=== PATIENT | female | born 1995 | race African-American/Black ===

== ENCOUNTER 2019-03-30 12:44 | Emergency (ER) | payer OTHER ==
[~2019-03-30] VITALS: Ht 162.6 cm; Wt 104.3 kg
[2019-03-30] MEDS ORDERED: PROAIR HFA8.5 GM INH (12:56)
[2019-03-30 14:56] VITALS: BP 136/78
== END 2019-03-30 14:57 | disposition home or self-care (01) ==
LOC: ER 12:44
DX: N89.8 Other specified noninflammatory disorders of vagina (principal); E28.2 Polycystic ovarian syndrome; J45.909 Unspecified asthma, uncomplicated

== ENCOUNTER 2019-04-13 08:31 | Emergency (ER) | payer OTHER ==
[~2019-04-13] VITALS: Ht 165.1 cm; Wt 111.1 kg
[~2019-04-13 08:31] MED LIST: PROAIR HFA8.5 GM INH
[2019-04-13 09:21] LABS: URINE BILIRUBIN NEGATIVE (Negative); URINE BLOOD TRACE (Negative); URINE CLARITY CLEAR; URINE COLOR YELLOW; URINE GLUCOSE-RANDOM* NEGATIVE (Negative); URINE KETONES NEGATIVE (Negative); URINE LEUKOCYTES-REFLEX TRACE (Negative); URINE NITRITE-REFLEX NEGATIVE (Negative); URINE PROTEIN (DIPSTICK) NEGATIVE (Negative); URINE SPECIFIC GRAVITY 1.025 (1.005-1.035); URINE UROBILINOGEN 0.2 E.U./dl (0.2-1.0)
[2019-04-13 10:24] VITALS: BP 117/85
== END 2019-04-13 10:25 | disposition home or self-care (01) ==
LOC: ER 08:31
PROVIDERS: Emergency Medicine
DX: N89.8 Other specified noninflammatory disorders of vagina (principal); J45.909 Unspecified asthma, uncomplicated

== ENCOUNTER 2019-08-28 14:04 | Emergency (ER) | payer OTHER ==
[~2019-08-28] VITALS: Ht 165.1 cm; Wt 115.7 kg
[2019-08-28] MEDS ORDERED: PREDNISONE 20 M20 MG PO (16:07)
[2019-08-28] MEDS ORDERED: PROAIR HFA8.5 GM INH (16:07)
[2019-08-28 16:25] VITALS: BP 121/77
== END 2019-08-28 16:25 | disposition home or self-care (01) ==
LOC: ER 14:04
DX: J45.901 Unspecified asthma with (acute) exacerbation (principal)

== ENCOUNTER 2019-12-03 10:38 | Emergency (ER) | payer OTHER ==
[~2019-12-03] VITALS: Ht 162.6 cm; Wt 113.4 kg
[~2019-12-03 10:38] MED LIST changes: +PREDNISONE 20 M20 MG PO
[2019-12-03 11:35] LABS: URINE BILIRUBIN NEGATIVE (Negative); URINE BLOOD NEGATIVE (Negative); URINE CLARITY CLEAR; URINE COLOR YELLOW; URINE GLUCOSE-RANDOM* NEGATIVE (Negative); URINE KETONES NEGATIVE (Negative); URINE LEUKOCYTES-REFLEX TRACE (Negative); URINE NITRITE-REFLEX NEGATIVE (Negative); URINE PROTEIN (DIPSTICK) NEGATIVE (Negative); URINE SPECIFIC GRAVITY >= 1.030 (1.005-1.035); URINE UROBILINOGEN 0.2 E.U./dl (0.2-1.0)
[2019-12-03] MEDS ORDERED: FLAGYL500 M1 PO (11:54)
[2019-12-03 12:13] VITALS: BP 137/77
== END 2019-12-03 12:13 | disposition home or self-care (01) ==
LOC: ER 10:38
PROVIDERS: Emergency Medicine
DX: N76.0 Acute vaginitis (principal); J45.909 Unspecified asthma, uncomplicated; Z79.899 Other long term (current) drug therapy

== ENCOUNTER 2020-03-14 09:40 | Emergency (ER) | payer OTHER ==
[~2020-03-14] VITALS: Ht 165.1 cm; Wt 117.9 kg
[~2020-03-14 09:40] MED LIST changes: +FLAGYL500 M1 PO
[2020-03-14 10:35] LABS: URINE BILIRUBIN NEGATIVE (Negative); URINE BLOOD TRACE (Negative); URINE CLARITY CLEAR; URINE COLOR YELLOW; URINE GLUCOSE-RANDOM* NEGATIVE (Negative); URINE KETONES NEGATIVE (Negative); URINE NITRITE-REFLEX NEGATIVE (Negative); URINE PROTEIN (DIPSTICK) NEGATIVE (Negative); URINE SPECIFIC GRAVITY >= 1.030 (1.005-1.035); URINE UROBILINOGEN 0.2 E.U./dl (0.2-1.0)
[2020-03-14 10:36] LABS: URINE LEUKOCYTES-REFLEX 1+ (Negative)
[2020-03-14 10:45] LABS: SQUAMOUS >10 Many /LPF (0-3)
[2020-03-14 10:46] LABS: CASTS None Seen /LPF (None Seen); CRYSTALS None Seen /LPF (None Seen)
[2020-03-14 10:47] LABS: BACTERIA-REFLEX 1-9 Few /HPF (None Seen); URINE RBC 0-2 Rare /HPF (0-2); URINE WBC-REFLEX 6-15 Few /HPF (0-5)
[2020-03-14 12:15] VITALS: BP 124/76
[2020-03-14] MEDS ORDERED: KEFLEX500 M1 PO (12:26)
== END 2020-03-14 12:15 | disposition home or self-care (01) ==
LOC: ER 09:40
PROVIDERS: Emergency Medicine
DX: N39.0 Urinary tract infection, site not specified (principal); N72 Inflammatory disease of cervix uteri; R35.0 Frequency of micturition; J45.909 Unspecified asthma, uncomplicated; Z79.899 Other long term (current) drug therapy

== ENCOUNTER 2020-07-16 09:05 | Emergency (ER) | payer OTHER ==
[~2020-07-16] VITALS: Ht 162.6 cm; Wt 113.4 kg
[~2020-07-16 09:05] MED LIST changes: +KEFLEX500 M1 PO
[2020-07-16 09:44] LABS: URINE BILIRUBIN NEGATIVE (Negative); URINE BLOOD NEGATIVE (Negative); URINE CLARITY CLEAR; URINE COLOR YELLOW; URINE GLUCOSE-RANDOM* NEGATIVE (Negative); URINE KETONES NEGATIVE (Negative); URINE LEUKOCYTES-REFLEX NEGATIVE (Negative); URINE NITRITE-REFLEX NEGATIVE (Negative); URINE PROTEIN (DIPSTICK) NEGATIVE (Negative); URINE UROBILINOGEN 0.2 E.U./dl (0.2-1.0)
[2020-07-16 10:22] LABS: ABSOLUTE NEUTROPHILS 1.8 thou/uL (1.4-8.2); BASOPHILS 1.3 % (0.0-2.0); HEMOGLOBIN 13.5 gm/dL (12.0-15.0); LYMPHOCYTES 37.6 % (24.0-44.0); MCH 26.6 pg (26.0-34.0); MCV 80.6 fL (80.0-100.0); MONOCYTES 8.4 % (1.0-8.0); PLATELET COUNT 272 thou/uL (150-400); POLYS 43.7 % (36.0-66.0); RBC 5.08 mil/uL (4.20-5.00); RDW 13.8 % (10.5-14.5)
[2020-07-16 10:31] LABS: CALCIUM 8.9 mg/dL (8.5-10.1); CREATININE 1.1 mg/dL (0.6-1.0); POTASSIUM 3.7 mmol/L (3.5-5.1)
[2020-07-16 10:37] LABS: ALBUMIN 3.6 g/dL (3.4-5.0); TOTAL BILIRUBIN 0.3 mg/dL (0.2-1.0); TOTAL PROTEIN 7.5 g/dL (6.4-8.2)
[2020-07-16] MEDS ORDERED: ULTRAM 50MG TAB50 MG PO (11:02)
[2020-07-16 11:07] VITALS: BP 123/81
== END 2020-07-16 11:09 | disposition home or self-care (01) ==
LOC: ER 09:05
PROVIDERS: Emergency Medicine
DX: R10.2 Pelvic and perineal pain (principal); J45.909 Unspecified asthma, uncomplicated

== ENCOUNTER 2020-10-30 19:03 | Emergency (ER) | payer OTHER ==
[~2020-10-30] VITALS: Ht 167.6 cm; Wt 113.4 kg
[~2020-10-30 19:03] MED LIST changes: +ULTRAM 50MG TAB50 MG PO
[2020-10-30 19:22] LABS: URINE BILIRUBIN NEGATIVE (Negative); URINE BLOOD NEGATIVE (Negative); URINE CLARITY CLEAR; URINE COLOR YELLOW; URINE GLUCOSE-RANDOM* NEGATIVE (Negative); URINE KETONES TRACE (Negative); URINE LEUKOCYTES-REFLEX NEGATIVE (Negative); URINE NITRITE-REFLEX NEGATIVE (Negative); URINE PROTEIN (DIPSTICK) NEGATIVE (Negative); URINE SPECIFIC GRAVITY 1.025 (1.005-1.035); URINE UROBILINOGEN 0.2 E.U./dl (0.2-1.0)
[2020-10-30 21:02] VITALS: BP 142/107
[2020-10-30] MEDS ORDERED: FLAGYL500 M1 PO (21:20)
== END 2020-10-30 21:35 | disposition home or self-care (01) ==
LOC: ER 19:03
PROVIDERS: Nurse Practitioner
DX: N76.0 Acute vaginitis (principal); B96.89 Other specified bacterial agents as the cause of diseases classified elsewhere; J45.909 Unspecified asthma, uncomplicated

== ENCOUNTER 2021-01-25 18:22 | Emergency (ER) | payer OTHER ==
[~2021-01-25] VITALS: Ht 167.6 cm; Wt 113.4 kg
[2021-01-25 19:59] LABS: URINE BILIRUBIN NEGATIVE (Negative); URINE BLOOD 1+ (Negative); URINE CLARITY CLEAR; URINE COLOR YELLOW; URINE GLUCOSE-RANDOM* NEGATIVE (Negative); URINE KETONES NEGATIVE (Negative); URINE NITRITE-REFLEX NEGATIVE (Negative); URINE PROTEIN (DIPSTICK) NEGATIVE (Negative); URINE SPECIFIC GRAVITY >= 1.030 (1.005-1.035); URINE UROBILINOGEN 0.2 E.U./dl (0.2-1.0)
[2021-01-25] MEDS ORDERED: DIFLUCAN150 M1 PO (20:06)
[2021-01-25 20:07] LABS: URINE LEUKOCYTES-REFLEX 2+ (Negative)
[2021-01-25 20:08] LABS: CASTS None Seen /LPF (None Seen); CRYSTALS None Seen /LPF (None Seen); SQUAMOUS 4-10 Moderate /LPF (0-3); URINE RBC 1-2 Rare /HPF (NONE SEEN); URINE WBC-REFLEX 6-15 Few /HPF (0-5)
[2021-01-25] MEDS ORDERED: CEPHALEXIN500 MG PO (20:16)
[2021-01-25 20:27] VITALS: BP 148/88
== END 2021-01-25 20:20 | disposition home or self-care (01) ==
LOC: ER 18:22
PROVIDERS: Nurse Practitioner Family
DX: B37.3 Candidiasis of vulva and vagina (principal); N39.0 Urinary tract infection, site not specified; J45.909 Unspecified asthma, uncomplicated